=== PATIENT | female | born 1995 | race Caucasian/White ===

== ENCOUNTER 2023-06-16 08:25 | Outpatient (CLI) | payer MEDICAID ==
[2023-06-16 12:30] LABS: BASOPHILS # (AUTO) 0.1 10^3/uL (0.0-0.1); EOSINOPHILS # (AUTO) 0.1 10^3/uL (0.0-0.7); EOSINOPHILS % (AUTO) 0.9 %; HGB - HEMOGLOBIN 13.4 g/dL (12.0-16.0); LYMPHOCYTES # (AUTO) 2.2 10^3/uL (1.5-3.5); LYMPHOCYTES % (AUTO) 37.9 %; MEAN CORPUSCULAR HEMOGLOBIN 30.6 pg (27.0-31.0); MEAN CORPUSCULAR HGB CONC 31.9 g/dL (32.0-36.0); MEAN CORPUSCULAR VOLUME 95.9 fL (81.0-99.0); MEAN PLATELET VOLUME 10.2 fL (7.9-10.8); MONOCYTES # (AUTO) 0.5 10^3/uL (0.0-1.0); MONOCYTES % (AUTO) 7.9 %; PLT - PLATELET COUNT 366 10^3/uL (130-450); RED BLOOD COUNT 4.38 10^6/uL (4.20-5.40); RED CELL DISTRIBUTION WIDTH 13.4 % (12.0-15.0); WHITE BLOOD COUNT 5.8 x10^3/uL (4.8-10.8)
[2023-06-16 12:46] LABS: ALBUMIN 4.4 g/dL (3.2-5.5); ALBUMIN/GLOBULIN RATIO 1.4 (1.0-2.2); ALKALINE PHOSPHATASE 59 IU/L (42-121); ALT ALANINE AMINOTRANSFERASE 16 IU/L (10-60); AST ASPARTATE AMINOTRANSFERASE 15 IU/L (10-42); BILIRUBIN,TOTAL 0.3 mg/dL (0.2-1.0); BUN - BLOOD UREA NITROGEN 11 mg/dL (6-20); CALCIUM 9.7 mg/dL (8.5-10.3); CARBON DIOXIDE - CO2 28 mmol/L (21-32); CHLORIDE 105 mmol/L (101-111); CHOL/HDL RATIO 4.2 (<4.4); CHOLESTEROL 154 mg/dL; CREATININE 0.7 mg/dL (0.6-1.3); GFR - MDRD 100 (>89); GLUCOSE 89 mg/dL (74-104); HDL CHOLESTEROL 37 mg/dL; LDL CHOLESTEROL,CALCULATED 65 mg/dL; LDL/HDL RATIO 1.8 (<4.4); POTASSIUM 4.1 mmol/L (3.5-4.5); SODIUM 138 mmol/L (135-145); TOTAL PROTEIN 7.5 g/dL (6.4-8.9); TRIGLYCERIDES 258 mg/dL (48-352); VLDL CHOLESTEROL 52 mg/dL
[2023-06-16 13:01] LABS: THYROID STIMULATING HORMONE 2.01 uIU/mL (0.34-5.60)
== END 2023-06-16 08:26 | disposition home or self-care (01) ==
LOC: LAB.N 08:25
PROVIDERS: ATTEND Nurse Practitioner
DX: R53.83 Other fatigue (principal); Z13.220 Encounter for screening for lipoid disorders; R20.2 Paresthesia of skin
CPT/HCPCS: 36415; 80053; 80061; 82607; 83721; 84443; 85025

== ENCOUNTER 2024-02-05 21:10 | Emergency (ER) | payer BC, MEDICAID ==
[2024-02-05 21:39] VITALS: O2SAT 98
[2024-02-05 22:04] LABS: BASOPHILS % (AUTO) 0.5 %; EOSINOPHILS % (AUTO) 0.5 %; HCT - HEMATOCRIT 39.3 % (37.0-47.0); HGB - HEMOGLOBIN 12.7 g/dL (12.0-16.0); LYMPHOCYTES # (AUTO) 2.3 10^3/uL (1.5-3.5); LYMPHOCYTES % (AUTO) 28.7 %; MEAN CORPUSCULAR HEMOGLOBIN 30.5 pg (27.0-31.0); MEAN CORPUSCULAR HGB CONC 32.3 g/dL (32.0-36.0); MEAN CORPUSCULAR VOLUME 94.5 fL (81.0-99.0); MEAN PLATELET VOLUME 9.4 fL (7.9-10.8); MONOCYTES # (AUTO) 0.5 10^3/uL (0.0-1.0); MONOCYTES % (AUTO) 6.4 %; NEUTROPHILS % (AUTO) 63.5 %; PLT - PLATELET COUNT 323 10^3/uL (130-450); RED BLOOD COUNT 4.16 10^6/uL (4.20-5.40); RED CELL DISTRIBUTION WIDTH 13.1 % (12.0-15.0); WHITE BLOOD COUNT 7.9 x10^3/uL (4.8-10.8)
[2024-02-05] MEDS ORDERED: PROMETHAZINE 25 MG/1 ML VIAL ONE (22:10)
[2024-02-05] MEDS: SODIUM CHLORIDE 0.9% 1,000 ML IV STA (22:11)
[2024-02-05] MEDS: PROMETHAZINE INJ 25 MG in SODIUM CHLORIDE 0.9% 50 ML IV STA (22:12)
[2024-02-05] MEDS: KETOROLAC 30 MG/ML VIAL IVP STA (22:12)
[2024-02-05 22:18] LABS: ALBUMIN 4.5 g/dL (3.2-5.5); ALBUMIN/GLOBULIN RATIO 1.7 (1.0-2.2); ALKALINE PHOSPHATASE 61 IU/L (42-121); ALT ALANINE AMINOTRANSFERASE 17 IU/L (10-60); AST ASPARTATE AMINOTRANSFERASE 15 IU/L (10-42); BILIRUBIN,TOTAL 0.2 mg/dL (0.2-1.0); BUN - BLOOD UREA NITROGEN 11 mg/dL (6-20); CALCIUM 9.5 mg/dL (8.5-10.3); CARBON DIOXIDE - CO2 27 mmol/L (21-32); CHLORIDE 104 mmol/L (101-111); CREATININE 0.6 mg/dL (0.6-1.3); GFR - MDRD 118 (>89); GLUCOSE 95 mg/dL (74-104); LIPASE 22 U/L (11-82); POTASSIUM 3.8 mmol/L (3.5-4.5); SODIUM 137 mmol/L (135-145); TOTAL PROTEIN 7.2 g/dL (6.4-8.9)
[2024-02-05 22:24] LABS: HCG,QUALITATIVE BLOOD NEGATIVE
--- NOTE | 2024-02-05 22:42 | CT Report ---
PROCEDURE: Head WO INDICATIONS: headache, R vis field def, R arm numbness TECHNIQUE: Noncontrast 4.5 mm thick angled axial sections acquired from the foramen magnum to the vertex. For r adiation dose reduction, the following was used: automated exposure control, adjustment of mA and/or kV according to patient size. COMPARISON: None. FINDINGS: Image quality: Excellent. CSF spaces: Basal cisterns are patent. No extra-axial fluid collections. Ventricles are normal in size and shape. Brain: No midline shift. No intracranial masses or hemorrhage. Johnson-white matter interface is norm al. Skull and face: Calvarium and visualized facial bones are intact, without suspicious lesions. Sinuses: Visualized sinuses and mastoids are clear. IMPRESSION: No acute intracranial pathology. Reviewed by: Naty Edwards MD on 02/05/2024 10:41 PM PDT Approved by: Naty Edwards MD on 02/05/2024 10:41 PM PDT Station ID: [id number]
--- NOTE | 2024-02-06 00:02 | ED Physician Documentation ---
History of Present Illness - Stated complaint Stated Complaint: GARIBAY/ARM/THROAT NUMB - Chief complaint Chief Complaint: Neuro - History obtained from History obtained from: Patient - Additonal information Additional information: The patient comes to the emergency department chief complaint of headache, blind spots, and right arm numbness that started a couple hours ago. Patient states she does not have a history of migraines but she did have a similar episode a couple of months ago. She states that today, she began to notice a headache and then began having Karoline in her vision in both eyes that initially looked like diamonds and then progressed to a larger area and finally resulted in simply having a blind spot from her mid vision and to the right. Patient also began to notice some numbness and tingling in her right arm and hand. No weakness or facial droop. No numbness anywhere else. No difficulty finding her words. The patient states that she has had some resolution of symptoms. Her arm is feeling completely better and her vision is somewhat improved. She still has a bad headache. She denies any history of stroke. She states that since her previous episode like this, she has not had any other headaches or symptoms. PD PAST MEDICAL HISTORY - Past Medical History Neuro: Seizure disorder - Past Surgical History Past Surgical History: No - Present Medications Home Medications: Ambulatory Orders Medication Instructions Recorded Confirmed No Known Home Medications 02/05/24 02/05/24 - Allergies Allergies/Adverse Reactions: Allergies Allergy/AdvReac Type Severity Reaction Status Date / Time No Known Drug Allergies Allergy Verified 02/05/24 21:22 - Social History Does the pt smoke?: No Smoking Status: Never smoker Does the pt drink ETOH?: No Does the pt have substance abuse?: No PD ED PE NORMAL - Vitals Vital signs reviewed: Yes - General General: Alert and oriented X 3, No acute distress, Well developed/nourished - HEENT HEENT: Atraumatic, PERRL, EOMI, Moist mucous membranes - Neck Neck: Supple, no meningeal sign - Cardiac Cardiac: RRR, No murmur - Respiratory Respiratory: No respiratory distress, Clear bilaterally - Abdomen Abdomen: Soft, Non tender, Non distended - Derm Derm: Normal color, Warm and dry, No rash - Extremities Extremities: No deformity, No edema - Neuro Neuro: Alert and oriented X 3, 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, No motor deficit, No sensory deficit, Normal speech - Psych Psych: Normal mood, Normal affect Results - Vitals Vitals: Vital Signs - 24 hr 02/05/24 02/05/24 02/06/24 21:14 21:31 00:05 Temperature 36.4 C L Heart Rate 89 79 64 Respiratory 16 16 16 Rate Blood Pressure 126/78 122/83 H 100/62 O2 Saturation 100 98 98 Oxygen O2 Source Room air - Labs Labs: Laboratory Tests 02/05/24 02/05/24 21:58 21:58 WBC 7.9 RBC 4.16 L Hgb 12.7 Hct 39.3 MCV 94.5 MCH 30.5 MCHC 32.3 RDW 13.1 Plt Count 323 MPV 9.4 Neut # (Auto) 5.0 Lymph # (Auto) 2.3 Sandoval # (Auto) 0.5 Eos # (Auto) 0.0 Baso # (Auto) 0.0 Absolute Nucleated RBC 0.00 Nucleated RBC % 0.0 Sodium 137 Potassium 3.8 Chloride 104 Carbon Dioxide 27 Anion Gap 6.0 BUN 11 Creatinine 0.6 Estimated GFR (MDRD) 118 Glucose 95 Calcium 9.5 Total Bilirubin 0.2 AST 15 ALT 17 Alkaline Phosphatase 61 Total Protein 7.2 Albumin 4.5 Globulin 2.7 Albumin/Globulin Ratio 1.7 Lipase 22 Serum HCG, Qual NEGATIVE - Rads (name of study) head CT Relevant Findings:: Final report received, See rad report (neg) PD Medical Decision Making - ED course Complexity details: reviewed results, re-evaluated patient, considered dif ferential, d/w patient ED course: The patient was worked up with CT of the head, as well as laboratory studies and was treated symptomatically with IV fluids, Toradol, and Phenergan. She was found to be feeling much better with complete resolution of her symptoms after treatment. Her workup was negative. I suspected an atypical migraine, based on her symptoms. We have discussed symptomatic management at home should happen again, as well as the need for follow-up with her primary to discuss possible referral to neurology. We have discussed the usual indications for return. Departure - Departure Disposition: 01 Home, Self Care Clinical Impression: Atypical migraine Condition: Stable Instructions: ED Headache Migraine Comments: Your labs and head CT look good. As we discussed, I suspect an atypical migraine, meaning a migraine headache that causes visual phenomena and sometimes neurologic deficits such as numbness. You should schedule follow-up appointment with your primary doctor to make sure that you receive appropriate follow-up for this visit, however. If you continue to have these episodes, it would be good for you to follow-up with neurology to be sure that this is what is actually happening. There is no evidence of stroke at this time. Please be sure you are getting 8 to 10 cups of water every day and plenty of rest at night to help prevent migraines. Forms: PCP List Discharge Date/Time: 02/06/24 00:06
[2024-02-06 00:13] VITALS: BP 100/62
== END 2024-02-06 00:06 | disposition home or self-care (01) ==
LOC: ED 21:10
DX: G43.909 Migraine, unspecified, not intractable, without status migrainosus (principal)
CPT/HCPCS: 36415; 70450; 80053; 83690; 84703; 85025; 96365; 96375; 99283; 99284; J7040

== ENCOUNTER 2024-06-16 08:00 | Outpatient (CLI) | payer BC, MEDICAID | END 2024-06-16 23:59 | disposition home or self-care (01) | LOC: LAB 08:00 | PROVIDERS: ATTEND Physician Assistant | DX: R30.0 Dysuria (principal) | CPT/HCPCS: 87086 ==